=== PATIENT | female | born 1995 | race Two or more races ===

== ENCOUNTER 2018-12-13 00:35 | Inpatient (IN) | payer MEDICAID ==
[2018-12-13 01:30] LABS: APPEARANCE,URINE TURBID; BILIRUBIN,URINE NEGATIVE (NEGATIVE); COLOR,URINE AMBER; GLUCOSE, URINE NEGATIVE (NEGATIVE); KETONES,URINE 80 mg/dL (NEGATIVE); LEUKOCYTE ESTERASE,URINE MODERATE (NEGATIVE); NITRITE,URINE NEGATIVE (NEGATIVE); PROTEIN,URINE 100 mg/dL (NEGATIVE); URINE SPECIFIC GRAVITY 1.027
[2018-12-13 01:48] LABS: URINE AMPHETAMINES SCREEN NEGATIVE; URINE BARBITURATES SCREEN NEGATIVE; URINE BENZODIAZEPINES SCREEN NEGATIVE; URINE COCAINE SCREEN NEGATIVE; URINE MARIJUANA (THC) SCREEN NEGATIVE; URINE METHADONE SCREEN NEGATIVE; URINE PHENCYCLIDINE SCREEN NEGATIVE
[2018-12-13] MEDS: RINGERS SOLUTION,LACTATED 1,000 ML IV PRN ×2 (03:10→09:38)
[2018-12-13] MEDS ORDERED: OXYTOCIN/NORMAL SALINE 20 UNIT/1,000 ML RTUINJ ONE (03:17)
[2018-12-13] MEDS ORDERED: MISOPROSTOL 0.2 MG TABLET ONE (03:17)
[2018-12-13] MEDS ORDERED: OXYTOCIN 10 UNIT/ML VIAL ONE (03:17)
[2018-12-13] MEDS ORDERED: LIDOCAINE 1% INJ-PF (10 MG/ML) 30 ML SDV ONE (03:17)
--- NOTE | 2018-12-13 03:28 | Admission Physical ---
Datetime Report Generated by CPN: 12/13/2018 03:27 CURRENT ADMISSION Chief Complaint: Uterine Contractions Indication for Induction: Not Applicable Admit Impression : Term, Intrauterine ; No Active Labor; Intact Membranes Admit Plan: Admit to Unit; Initiate Labor Augmentation Protocol ALLERGIES Medication Allergies: No Medication Allergies: No Known Allergies (12/13/2018) Latex: No Latex Allergies Environmental Allergies: pollen OBSTETRICAL HISTORY EDC: 12/14/2018 00:00 : 1 Para: 0 Term: 0 : 0 SAB: 0 IAB: 0 Ectopic: 0 Livin Cesareans: 0 VBACs: 0 Multiple Births: 0 Gestational Diabetes: No Rh Sensitization: No Incompetent Cervix: No THEODORE: No Infertility: No ART Treatment: No Uterine Anomaly: No IUGR: No Hx Previous C/S: No Macrosomia: No Hx Loss/Stillborn: No PIH: No Hx : No Placenta Previa/Abruption: No Depression/PP Depression: No PTL/PROM: No Post Hemorrhage: No Current Procedures: Ultrasound Obstetrical History Comments: G1 - current SEE RECORDS Alcohol: No Marijuana : No Cocaine: No Other Illicit Drugs: No Cigarettes: Never Smoker. 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: No Heart Disease: No Hosp/Surgery: No Autoimmune Disorder: No Anesthetic Complications: No Kidney Disease: No Abnormal Pap Smear: Yes Neuro/Epilepsy: No Psychiatric Disorders: No Other Medical Diseases: No Hepatitis/Liver Disease: No Significant Family History: No Varicosities/Phlebitis: No Trauma/Violence : No Thyroid Dysfunction: No Medical History Comments: ASCUS, HPV 2019 INFECTIOUS HISTORY Gonorrhea: No Genital Herpes: No Chlamydia: Yes Tuberculosis: No Syphilis: No Hepatitis: No HIV/AIDS Exposure: No Rash or Viral Illness: No HPV: No PHYSICAL EXAM General: Normal HEENT: Normal Neurologic: Normal Thyroid: Normal Heart: Normal Lungs: Normal Breast: Normal Back: Normal Abdomen: Normal Genitourinary Exam: Normal Extremities: Normal DTRs: Normal Pelvic Type: Adequate Vital Signs: Reviewed VAGINAL EXAM Dilatation: 3-4 Effacement: 80 Station: -1 MEMBRANES Membranes: Intact FETUS A EGA: 39.6 Monitoring: External US FHR- Baseline: 130s Accelerations: 15X15 Decelerations: None FHR Category: Category I Admit Comment: Pt arrived to L_D secondary to contractions--cervix 1-2/60%/-3. She walked a while and now is 3-4 cm. She had SROM just prior to admission. She is GBS Negative. PLANS FOR LABOR AND DELIVERY Labor and Delivery: None Pain Management: Natural; Medications Feeding Preference: Breast Benefit of Breast Feed Discussed: Yes Circumcision: Yes INFORMED CONSENT Signature: with User ID: [email or web address]
[2018-12-13] MEDS ORDERED: PROMETHAZINE HCL INJ 25 MG/1 ML VIAL ONE (03:40)
[2018-12-13] MEDS ORDERED: NALBUPHINE HCL INJ 10 MG/1 ML AMPULE ONE (03:40)
[2018-12-13 03:45] LABS: HEMATOCRIT 32.6 % (36.0-47.0); HEMOGLOBIN 10.4 g/dL (12.0-15.5); MEAN CORPUSCULAR HEMOGLOBIN 24.6 pg (27.0-33.4); MEAN CORPUSCULAR HGB CONC 31.9 g/dL (32.0-36.0); MEAN CORPUSCULAR VOLUME 77 fl (80-97); PLATELET COUNT 148 10^3/uL (150-450); RED BLOOD COUNT 4.24 10^6/uL (3.72-5.28); RED CELL DISTRIBUTION WIDTH 17.3 % (11.5-14.0)
[2018-12-13 04:10] LABS: ABSOLUTE LYMPHOCYTES# (MANUAL) 0.8 10^3/uL (0.5-4.7); ABSOLUTE NEUTROPHILS# (MANUAL) 23.3 10^3/uL (1.7-8.2); BAND NEUTROPHILS % (MANUAL) 5 % (3-5); BASOPHILS % (MANUAL) 0 % (0-2); EOSINOPHILS % (MANUAL) 0 % (0-6); LYMPHOCYTES % (MANUAL) 3 % (13-45); MONOCYTES % (MANUAL) 4 % (3-13); SEGMENTED NEUTROPHILS % (MAN) 88 % (42-78); TOTAL CELLS COUNTED 100
[2018-12-13 04:11] LABS: PLATELET COMMENT DECREASED; TOXIC GRANULATION 1+; TOXIC VACUOLATION PRESENT
[2018-12-13 04:12] LABS: HYPOCHROMASIA SLIGHT; OVALOCYTES SLIGHT; POLYCHROMASIA SLIGHT
[2018-12-13] MEDS ORDERED: NALBUPHINE HCL INJ 10 MG/1 ML AMPULE INJ ONE (04:30)
[2018-12-13] MEDS ORDERED: PROMETHAZINE HCL INJ 25 MG/1 ML VIAL IV ONE (04:30)
[2018-12-13] MEDS ORDERED: CEFAZOLIN 2 GM/D5W RTU 2 GM/50 ML RTUPB IV ONE ×2 (09:12→10:30)
[2018-12-13] MEDS ORDERED: ACETAMINOPHEN 650 MG SUPP.RECT PR PRN (11:46)
[2018-12-13] MEDS ORDERED: GLYCERIN/WITCH HAZEL LEAF 1 EACH MED..PAD TP PRN (11:46)
[2018-12-13] MEDS ORDERED: PROMETHAZINE HCL 25 MG TABLET PO PRN (11:46)
[2018-12-13] MEDS ORDERED: NA PHOS,M-B/NA PHOS,DI-BA (ADULT) 133 ML ENEMA PR PRN (11:46)
[2018-12-13] MEDS ORDERED: OXYTOCIN/NORMAL SALINE 20 UNIT/1,000 ML RTUINJ IV PRN (11:46)
[2018-12-13] MEDS ORDERED: PSEUDOEPHEDRINE HCL 30 MG TABLET PO PRN (11:46)
[2018-12-13] MEDS ORDERED: ZOLPIDEM TARTRATE 5 MG TABLET PO PRN (11:46)
[2018-12-13] MEDS ORDERED: BENZOCAINE/MENTHOL AEROSOL SPRAY 56 ML TOP PRN (11:46)
[2018-12-13] MEDS ORDERED: PROMETHAZINE HCL INJ 25 MG/1 ML VIAL IV PRN (11:46)
[2018-12-13] MEDS ORDERED: DIBUCAINE 1% OINTMENT 56 GM TP PRN (11:46)
[2018-12-13] MEDS ORDERED: MAGNESIUM HYDROXIDE SUSP 30 ML UDCUP PO PRN (11:46)
[2018-12-13] MEDS ORDERED: ACETAMINOPHEN WITH CODEINE #3 TABLET PO PRN ×2 (11:46)
[2018-12-13] MEDS ORDERED: DIPH/PERTUSS(ACELL)/TETANUS VAC/PF 0.5 ML SYR (>=10YO) IM PRN (11:46)
[2018-12-13] MEDS ORDERED: PROMETHAZINE HCL 25 MG SUPP.RECT PR PRN (11:46)
[2018-12-13] MEDS ORDERED: MEASLES,MUMPS&RUBELLA VACC/PF 0.5 ML VIAL SUBCUT PRN (11:46)
[2018-12-13] MEDS ORDERED: DIPHENHYDRAMINE HCL 25 MG CAPSULE PO PRN (11:46)
[2018-12-13 12:56] LABS: HEMATOCRIT 32.7 % (36.0-47.0); HEMOGLOBIN 10.2 g/dL (12.0-15.5); MEAN CORPUSCULAR HEMOGLOBIN 24.2 pg (27.0-33.4); MEAN CORPUSCULAR HGB CONC 31.3 g/dL (32.0-36.0); MEAN CORPUSCULAR VOLUME 77 fl (80-97); PLATELET COUNT 154 10^3/uL (150-450); RED BLOOD COUNT 4.23 10^6/uL (3.72-5.28); RED CELL DISTRIBUTION WIDTH 17.8 % (11.5-14.0); WHITE BLOOD COUNT 27.4 10^3/uL (4.0-10.5)
[2018-12-13 13:00] LABS: CHLAM PCR NOT DETECTED (NOT DETECT); GON PCR NOT DETECTED (NOT DETECT)
--- NOTE | 2018-12-13 13:01 | Warning Signs in Babies ---
VOD Warning Signs Datetime Report Generated by [facility]: 12/13/2018 13:01 VOD#608 -Warning Signs in Babies: Viewed with Parent(s)/Family (12/13/2018 13:00:Dimas Vieyra RN)
[2018-12-13 13:18] LABS: ABSOLUTE LYMPHOCYTES# (MANUAL) 0.8 10^3/uL (0.5-4.7); ABSOLUTE MONOCYTES # (MANUAL) 0.8 10^3/uL (0.1-1.4); ABSOLUTE NEUTROPHILS# (MANUAL) 25.8 10^3/uL (1.7-8.2); BASOPHILS % (MANUAL) 0 % (0-2); EOSINOPHILS % (MANUAL) 0 % (0-6); LYMPHOCYTES % (MANUAL) 3 % (13-45); MONOCYTES % (MANUAL) 3 % (3-13); NUCLEATED RED BLOOD CELLS 1 /100 WBC (0); SEGMENTED NEUTROPHILS % (MAN) 94 % (42-78); TOTAL CELLS COUNTED 100
[2018-12-13 13:19] LABS: ANISOCYTOSIS 1+; HYPOCHROMASIA SLIGHT; OVALOCYTES SLIGHT; PLATELET COMMENT ADEQUATE; POIKILOCYTOSIS SLIGHT; POLYCHROMASIA SLIGHT
[2018-12-13] MEDS: IBUPROFEN 800 MG TABLET PO SCH ×2 (14:39→22:06)
[2018-12-13] MEDS ORDERED: CEFAZOLIN 2 GM/D5W RTU 2 GM/50 ML RTUPB IV SCH (15:30)
[2018-12-13] MEDS: DOCUSATE SODIUM 100 MG CAPSULE PO SCH (17:29)
[2018-12-13] MEDS: FERROUS SULFATE 325 MG TABLET PO SCH (17:29)
[2018-12-13] MEDS: CEFAZOLIN SODIUM 2 GM in DEXTROSE 5%-WATER 100 ML IV SCH ×2 (18:57→23:29)
[2018-12-13] MEDS: FAMOTIDINE 20 MG TABLET PO SCH (22:06)
[2018-12-14] MEDS: CEFAZOLIN SODIUM 2 GM in DEXTROSE 5%-WATER 100 ML IV SCH ×2 (05:42→13:57)
[2018-12-14] MEDS: IBUPROFEN 800 MG TABLET PO SCH ×3 (05:44→22:07)
[2018-12-14 07:40] LABS: HEMATOCRIT 28.3 % (36.0-47.0); MEAN CORPUSCULAR HEMOGLOBIN 24.6 pg (27.0-33.4); MEAN CORPUSCULAR HGB CONC 31.7 g/dL (32.0-36.0); MEAN CORPUSCULAR VOLUME 78 fl (80-97); PLATELET COUNT 152 10^3/uL (150-450); RED BLOOD COUNT 3.64 10^6/uL (3.72-5.28); RED CELL DISTRIBUTION WIDTH 17.9 % (11.5-14.0); WHITE BLOOD COUNT 23.7 10^3/uL (4.0-10.5)
[2018-12-14 08:56] LABS: ABSOLUTE LYMPHOCYTES# (MANUAL) 1.2 10^3/uL (0.5-4.7); ABSOLUTE MONOCYTES # (MANUAL) 0.7 10^3/uL (0.1-1.4); ABSOLUTE NEUTROPHILS# (MANUAL) 21.8 10^3/uL (1.7-8.2); BASOPHILS % (MANUAL) 0 % (0-2); EOSINOPHILS % (MANUAL) 0 % (0-6); LYMPHOCYTES % (MANUAL) 5 % (13-45); MONOCYTES % (MANUAL) 3 % (3-13); SEGMENTED NEUTROPHILS % (MAN) 92 % (42-78); TOTAL CELLS COUNTED 100
[2018-12-14 08:59] LABS: ANISOCYTOSIS 1+; OVALOCYTES SLIGHT; POLYCHROMASIA SLIGHT
[2018-12-14 09:00] LABS: PLATELET COMMENT ADEQUATE
[2018-12-14] MEDS: FAMOTIDINE 20 MG TABLET PO SCH ×2 (09:31→22:07)
[2018-12-14] MEDS: PRENATAL VITAMIN W DHA CAPSULE PO SCH (09:31)
[2018-12-14] MEDS: SENNOSIDES/DOCUSATE 8.6-50 MG 1 EACH TABLET PO SCH (09:31)
[2018-12-14] MEDS: FERROUS SULFATE 325 MG TABLET PO SCH ×2 (09:31→18:06)
[2018-12-14] MEDS: DOCUSATE SODIUM 100 MG CAPSULE PO SCH ×2 (09:31→18:06)
--- NOTE | 2018-12-14 10:59 | PDOC PROGRESS REPORT ---
Subjective-OB Progress Note for:: 12/14/18 Subjective: Pt doing well, no concerns. She reports light bleeding, reg diet and voiding without difficulty. Physical Exam (OB) Vital Signs: Temp Pulse Resp BP Pulse Ox 98.3 F 82 16 122/77 99 12/14/18 08:20 12/14/18 08:20 12/14/18 08:20 12/14/18 08:20 12/14/18 08:20 Intake & Output 12/13/18 12/14/18 12/15/18 06:59 06:59 06:59 Intake Total 1248 Balance 1248 Weight 68.9 kg - Lochia Lochia Amount: Scant < 10 ml Lochia Color: Rubra/Red - Abdomen Description: Tender, Soft Hernia Present: No Fundal Description: Firm, Midline Fundal Height: u/u - u/2 Objective-Diagnostic Laboratory: 12/14/18 06:27 12/13/18 12/14/18 12:32 06:27 WBC 27.4 H 23.7 H RBC 4.23 3.64 L Hgb 10.2 L 9.0 L Hct 32.7 L 28.3 L MCV 77 L 78 L MCH 24.2 L 24.6 L MCHC 31.3 L 31.7 L RDW 17.8 H 17.9 H Plt Count 154 152 Seg Neutrophils % Not Reportable Not Reportable Lymphocytes % Not Reportable Not Reportable Monocytes % Not Reportable Not Reportable Eosinophils % Not Reportable Not Reportable Basophils % Not Reportable Not Reportable Absolute Neutrophils Not Reportable Not Reportable Absolute Lymphocytes Not Reportable Not Reportable Absolute Monocytes Not Reportable Not Reportable Absolute Eosinophils Not Reportable Not Reportable Absolute Basophils Not Reportable Not Reportable Assessment and Plan(PN) - Assessment and Plan (1) Chorioamnionitis Qualifiers: Fetus number: single or unspecified fetus Trimester: third trimester Qualified Code(s): O41.1230 - Chorioamnionitis, third trimester, not applicable or unspecified Is this a current diagnosis for this admission?: Yes (2) Normal vaginal delivery Is this a current diagnosis for this admission?: Yes - Time Spent with Patient Time with patient: Less than 15 minutes Medications reviewed and adjusted accordingly: Yes - Disposition Anticipated Discharge: Home Within: within 24 hours
[2018-12-15] MEDS: IBUPROFEN 800 MG TABLET PO SCH ×2 (05:28→14:53)
[2018-12-15] MEDS: DOCUSATE SODIUM 100 MG CAPSULE PO SCH (10:42)
[2018-12-15] MEDS: SENNOSIDES/DOCUSATE 8.6-50 MG 1 EACH TABLET PO SCH (10:42)
[2018-12-15] MEDS: FERROUS SULFATE 325 MG TABLET PO SCH (10:43)
[2018-12-15] MEDS: FAMOTIDINE 20 MG TABLET PO SCH (10:43)
[2018-12-15] MEDS: PRENATAL VITAMIN W DHA CAPSULE PO SCH (10:43)
[2018-12-15 13:04] VITALS: BP 116/80
--- NOTE | 2018-12-15 14:40 | PDOC DISCHARGE SUMMARY ---
Final Diagnosis Discharge Date: 12/15/18 - Final Diagnosis (1) Chorioamnionitis Is this a current diagnosis for this admission?: Yes (2) Normal vaginal delivery Is this a current diagnosis for this admission?: Yes (3) Anemia complicating , third trimester Is this a current diagnosis for this admission?: Yes (4) Acute blood loss anemia Is this a current diagnosis for this admission?: Yes Discharge Data - Discharge Medication Prescriptions: Ibuprofen [Motrin 800 mg Tablet] 800 mg PO Q8HP PRN #30 tablet PRN Reason: Abdominal Cramping Docusate Sodium [Colace 100 mg Capsule] 100 mg PO BID #60 capsule Ferrous Sulfate [Feosol 325 mg Tablet] 325 mg PO BID #60 tablet Home Medications: Pnv,Calcium 72/Iron,Carb/Folic [ Plus Iron Tablet] 1 each PO DAILY #30 tablet 05/07/18 Docusate Sodium [Colace 100 mg Capsule] 100 mg PO BID #60 capsule 12/15/18 Ferrous Sulfate [Feosol 325 mg Tablet] 325 mg PO BID #60 tablet 12/15/18 Ibuprofen [Motrin 800 mg Tablet] 800 mg PO Q8HP PRN #30 tablet 12/15/18 Reason(s) for Admission: Onset of Labor Procedures: Ultrasound Intrapartum Procedure(s): Spontaneous Vaginal Delivery - Diagnosis Test Laboratory: Temp Pulse Resp BP Pulse Ox 98.3 F 98 18 112/79 98 12/15/18 10:02 12/15/18 10:02 12/15/18 10:02 12/14/18 19:38 12/15/18 10:02 12/13/18 12/13/18 12/13/18 00:47 03:25 12:32 RBC 4.24 4.23 Hgb 10.4 L 10.2 L Hct 32.6 L 32.7 L Urine Opiates Screen NEGATIVE 12/14/18 06:27 RBC 3.64 L Hgb 9.0 L Hct 28.3 L Urine Opiates Screen - Discharge information/Instructions Discharge Activity: Activity As Tolerated, Balance Activity w/Rest, No Lifting Over 10 Pounds, Pelvic Rest, Supervised Activity, No tub bath, Walk Frequently Discharge Diet: As Tolerated, Regular Disposition: HOME, SELF-CARE Follow up with: [facility] in: 5, Weeks
[2018-12-15] MEDS ORDERED: MEDROXYPROGESTERONE ACET INJ 150 MG/1 ML VIAL IM ONE (15:30)
--- NOTE | 2018-12-22 15:35 | Delivery Summary ---
Del Sum A-C Datetime Report Generated by CPN: 12/22/2018 15:35 DELIVERY PERSONNEL DELIVERY PERSONNEL: [id number] Delivery Doctor:: Neela Billingsley CNM Labor and Delivery Nurse:: Dimas Vieyra RNtie presser Nurse:: Camelia Miranda RN Nursery Nurse:: Eda Wang RN School Fundraising Director/DRAPERY AND UPHOLSTERY MEASURER: Gabby Germain CNA II School Fundraising Director/DRAPERY AND UPHOLSTERY MEASURER: Connie Middleton, ERCO MACHINE OPERATOR MATERNAL INFORMATION Delivery Anesthesia: None Medications After Delivery: Pitocin Bolus-Please Comment; Pitocin Drip 20 Units/1000ml NSS Maternal Complications: Chorioamnionitis; Other Other Maternal Complications: MALODEROUS VAGINAL DISCHARGE Complication Details: maloderous vaginal discharge Provider Comments: KISHAN VIABLE MALE . DOUBLE NUCHAL X2-TIGHT, BABY SOMMERSAULTED. BABY WITHOUT SPONTANEOUS CRY INITIALLY, CORD DOUBLE CLAMPED AND CUT, BABY TRANSFERRED TO WARMER TO AWAITING NURSERY RN. SPONTANEOUS INTACT PLACENTA. FOUL ODOR NOTED AND PLACENTA CULTURED AND SENT FOR PATHOLOGY, CBC AND GC/CT ORDERED. MOTHER AND INFANT STABLE IN L_D#2. LABOR SUMMARY EDC: 12/14/2018 00:00 No. Babies in Womb: 1 Attempted: No Labor Anesthesia: IV Sedation LABOR INFORMATION Reason for Induction: Not Applicable Onset of Labor: 12/12/2018 20:00 Complete Dilatation: 12/13/2018 10:30 Oxytocin: N/A Group B Beta Strep: negative Antibiotics # of Doses: 1 Antibiotics Time of Last Dose: 927 Name of Antibiotic Given: ANCEF Steroids Given: None Reason Steroids Not Administered: Not Applicable MEMBRANES Membranes Rupture Method: Spontaneous Rupture of Membranes: 12/13/2018 02:00 Length of Rupture (hr): 9.02 Amniotic Fluid Color: Bloody Amniotic Fluid Amount: Small STAGES OF LABOR Stage 1 hr: 14 Stage 1 min: 30 Stage 2 hr: 0 Stage 2 min: 31 Stage 3 hr: 0 Stage 3 min: 6 Total Time in Labor hr: 15 Total Time in Labor min: 7 VAGINAL DELIVERY Episiotomy: None Laceration #1: None Laceration Extension #1: N/A Laceration Repair: Not Applicable Sponge Count Correct: N/A Sharps Count Correct: N/A CSECTION DELIVERY Primary Indication: N/A Secondary Indication: N/A CSection Incidence: N/A Labor: N/A Elective: N/A CSection Incision: N/A BABY A INFORMATION Infant Delivery Date/Time: 12/13/2018 11:01 Method of Delivery: Vaginal Method of Delivery: Vaginal Method of Delivery: Vaginal Born in Route : No : N/A Forceps: N/A Vacuum Extraction: N/A Shoulder Dystocia : No PRESENTATION/POSITION BABY A Presentation: Cephalic Cephalic Presentation: Vertex Vertex Position: Right Occipital Anterior Breech Presentation: N/A PLACENTA INFORMATION BABY A Placenta Delivery Time : 12/13/2018 11:07 Placenta Method of Delivery: Spontaneous Placenta Method of Delivery: Spontaneous Placenta Method of Delivery: Spontaneous Placenta Status: Delivered SCORES BABY A Heart Rate 1 min: >100 bpm Resp Effort 1 min: Slow, Irregular Reflex Irritability 1 min: Cough or Sneeze or Pulls Away Muscle Tone 1 min: Flaccid Color 1 min: Blue/Pale Resuscitation Effort 1 min: Tactile Stimulation SCORE 1 MIN: 5 Heart Rate 5 min: >100 bpm Resp Effort 5 min: Good Cry Reflex Irritability 5 min: Cough or Sneeze or Pulls Away Muscle Tone 5 min: Active Motion Color 5 min: Body [employer], Extremities Blue Resuscitation Effort 5 min: Tactile Stimulation SCORE 5 MIN: 9 INFANT INFORMATION BABY A Gestational Age at Delivery: 39.6 Gestational Status: Full Term- 39- 40.6 Weeks Outcome : Liveborn Infant Condition : Stable Sex: Male Sex: Male IDENTIFICATION BABY A Infant Verification Date/Time: 12/13/2018 11:21 ID Band Number: [id number] Mother's Name Verified: Yes RN Verifying Infant: Eleni Vieyra, RN and LYogesh Lundbridger,RN WEIGHT/LENGTH BABY A Infant Birthweight (gm): 2838 Weight (lb): 6 Infant Weight (oz): 4 Length (in): 20.00 Infant Length (cm): 50.80 CORD INFORMATION BABY A No. Cord Vessels: 3 Nuchal Cord : Around Neck x2, Tight Cord Blood Taken: Yes-For Storage (Mom's Blood type +) Suction: None ASSESSMENT BABY A Complications: Multiple Variable Decels Complications- Other: NUBAIN/PHENERGAN @ 0343 Physical Findings at Delivery: Caput Succedaneum; Molding of the Head Infant Respirations: Appears Normal Skin to Skin: Yes Order Packer/ALS Called : No Infant Care By: Piotr WANG RN Transferred To: Remains with Mother BABY B INFORMATION : N/A SIGNATURES Assignment: Anushka Valdez MD Signature: with User ID: [email or web address] : with User ID: [email or web address] : I was personally available for consultation and serving as supervising physician for the P.
== END 2018-12-15 15:40 | disposition home or self-care (01) | DRG 807 ==
LOC: LC 00:35 → LR 03:04 → 2S 13:28
PROVIDERS: ADMIT Obstetrics & Gynecology; ATTEND Obstetrics & Gynecology
PROC: 10E0XZZ Delivery of Products of Conception, External Approach (ICD-10-PCS; principal; 2018-12-13)
DX: O41.1230 Chorioamnionitis, third trimester, not applicable or unspecified (principal); Z37.0 Single live birth; O69.1XX0 Labor and delivery complicated by cord around neck, with compression, not applicable or unspecified; O76 Abnormality in fetal heart rate and rhythm complicating labor and delivery; O99.02 Anemia complicating childbirth; D64.9 Anemia, unspecified; Z3A.39 39 weeks gestation of pregnancy; F15.11 Other stimulant abuse, in remission
CPT/HCPCS: 36415; 80307; 81005; 85025; 86592; 86850; 86900; 86901; 87070; 87077; 87086; 87186; 87205; 87491; 87591; 88307; J0690; J2300; J2550; J2590; J3490